=== PATIENT | male | born 1995 | race Caucasian/White ===

== ENCOUNTER 2018-05-19 11:15 | Emergency (ER) | payer OTHER ==
[2018-05-19 12:58] VITALS: BP 120/66
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
== END 2018-05-19 13:19 | disposition home or self-care (01) ==
LOC: UCCORT 11:15
DX: S39.012A Strain of muscle, fascia and tendon of lower back, initial encounter (principal); V43.52XA Car driver injured in collision with other type car in traffic accident, initial encounter; Y93.89 Activity, other specified; Y92.410 Unspecified street and highway as the place of occurrence of the external cause; Z88.6 Allergy status to analgesic agent; F17.210 Nicotine dependence, cigarettes, uncomplicated
CPT/HCPCS: 99211; G0463

== ENCOUNTER 2018-07-14 09:00 | Emergency (ER) | payer OTHER ==
[2018-07-14 09:13] VITALS: BP 132/79
[2018-07-14] MEDS ORDERED: Ibuprofen TAB* 400 MG PO ONE (09:34)
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
--- NOTE | 2018-07-14 10:09 | RAD ---
Indication: Hand injury. 4 views of left hand are reviewed. There is a fracture at the base of the ulnar styloid process. No significant displacement is noted. The rest of the carpal bones and metatarsals are unremarkable. IMPRESSION: Fracture at the base of the ulnar styloid process.
[2018-07-14] MEDS ORDERED: HYDROcodone/ACETAMIN 5-325 MG* 1 TAB PO ONE (10:18)
--- NOTE | 2018-07-14 10:39 | RAD ---
INDICATION: Left forearm injury. TECHNIQUE: 2 views of the left forearm were obtained. FINDINGS: The bones are in normal alignment. On the lateral view there is a faint radiolucent area present in the distal ulna most consistent with a nondisplaced fracture. IMPRESSION: NONDISPLACED FRACTURE OF THE DISTAL ULNA.
[2018-07-14] MEDS ORDERED: Tetan/Diph/Pertus SYR(Tdap)* 0.5 ML SYR(BOOSTRIX) use SYR IM ONE ×2 (10:43→10:44)
== END 2018-07-14 11:07 | disposition home or self-care (01) ==
LOC: UCCORT 09:00
DX: S52.615A Nondisplaced fracture of left ulna styloid process, initial encounter for closed fracture (principal); S60.512A Abrasion of left hand, initial encounter; X50.1XXA Overexertion from prolonged static or awkward postures, initial encounter; Y93.E2 Activity, laundry; Y92.89 Other specified places as the place of occurrence of the external cause; Y99.0 Civilian activity done for income or pay; Z88.6 Allergy status to analgesic agent; F17.200 Nicotine dependence, unspecified, uncomplicated
CPT/HCPCS: 25600; 90471; 90715; 99213; A9270-GY; G0463

== ENCOUNTER 2019-11-14 09:37 | Emergency (ER) | payer OTHER ==
[2019-11-14 10:17] VITALS: BP 119/64
--- NOTE | 2019-11-14 11:35 | UC ---
Abdominal Pain Male HPI - HPI Summary HPI Summary: 24 year old male with no PMH, no prior surgeries presents with right upper quad pain x 24 hours. Gradually getting worse. Worse with deep inspiration / pushing on area. + nausea, no vomiting, no stool changes. nO prior occurrence. Worse with eating, able to drink without difficulty. - History of Current Complaint Chief Complaint: UCAbdominalPain Stated Complaint: ABDOMINAL PAIN Time Seen by Provider: 11/14/19 11:21 Hx Obtained From: Patient Onset/Duration: Sudden Onset, Lasting Days - 1 Timing: Constant Severity Initially: Moderate Severity Currently: Moderate Pain Intensity: 5 Pain Scale Used: 0-10 Numeric Location: Discrete At: RUQ Radiates: No Character: Colicy, Cramping, Sharp Aggravating Factor(s): Food, Deep Breaths Associated Signs And Symptoms: Positive: Negative, Decreased Appetite. Negative : Urinary Symptoms, Vomiting, Diarrhea - Allergies/Home Medications Allergies/Adverse Reactions: Allergies Allergy/AdvReac Type Severity Reaction Status Date / Time naproxen Allergy Intermediate Hives Verified 11/14/19 10:13 Home Medications: Home Medications Ibuprofen TAB* [Motrin TAB* 600 MG] 600 mg PO Q6H PRN 11/14/19 [History Confirmed 11/14/19] hydrOXYzine HCL TAB* [Atarax 25 MG TAB*] 25 mg PO BID PRN 11/14/19 [History Confirmed 11/14/19] PMH/Surg Hx/FS Hx/Imm Hx Previously Healthy: Yes - Surgical History Surgical History: None - Family History Known Family History: Positive: Other - not contributory, no FH RA or other autoimmune disorders, Non-Contributory - Social History Alcohol Use: None Substance Use Type: None Smoking Status (MU): Former Smoker Type: Cigarettes Length of Time of Smoking/Using Tobacco: 1 PPD x 10 Years Have You Smoked in the Last Year: Yes When Did the Patient Quit Smoking/Using Tobacco: ~08/2019 - Immunization History Most Recent Tetanus Shot: 07/14/18 Review of Systems All Other Systems Reviewed And Are Negative: Yes Constitutional: Negative: Fever, Chills, Fatigue Gastrointestinal: Positive: Abdominal Pain, Nausea. Negative: Vomiting, Diarrhea Motor: Positive: Negative Musculoskeletal: Positive: Negative Neurological: Positive: Negative Psychological: Positive: Negative Is Patient Immunocompromised?: No Physical Exam Triage Information Reviewed: Yes Appearance: No Pain Distress, Well-Nourished, Ill-Appearing - minimal Vital Signs: Initial Vital Signs Temp 98.3 F 11/14/19 10:10 Pulse 66 11/14/19 10:10 Resp 16 11/14/19 10:10 BP 119/64 11/14/19 10:10 Pulse Ox 100 11/14/19 10:10 Vital Signs Reviewed: Yes Eyes: Positive: Conjunctiva Clear Abdomen Description: Positive: No Organomegaly, Soft, Guarding - RLQ, RUQ, Other : - TTP over paraumbilical, RLQ, RUQ, + pain over appendix region, + referred pain to RLQ with palpation of LLQ. mild + psoas, neg obtruator.. Negative: CVA Tenderness (R), CVA Tenderness (L), Distended, Hepatomegaly, Splenomegaly Musculoskeletal Exam: Normal Musculoskeletal: Positive: Strength Intact Neurological Exam: Normal Neurological: Positive: Alert, Muscle Tone Normal Psychological Exam: Normal Skin Exam: Normal Skin: Negative: Rashes Abd Pain Male Course/Dx - Course Course Of Treatment: Abdominal pain with possibility of appendicitis - Please go to ER for further work up - SMall sips of water OK, nothing to eat or drink otherwise. - Differential Dx/Clinical Impression Differential Diagnosis/HQI/PQRI: Appendicitis Provider Diagnosis: Abdominal pain Discharge ED - Sign-Out/Discharge Documenting (check all that apply): Patient Departure All imaging exams completed and their final reports reviewed: No Studies - Discharge Plan Condition: Fair Disposition: HOME-RECOMMEND TO ED Patient Education Materials: Acute Abdominal Pain (ED) Referrals: Roberto Zaldivar [Primary Care Provider] - Additional Instructions: - Please go to ER for further work up - SMall sips of water OK, nothing to eat or drink otherwise. - Billing Disposition and Condition Condition: FAIR Disposition: Home-Recommend to ED
== END 2019-11-14 11:40 | disposition home health service (06) ==
LOC: UCCORT 09:37
DX: R10.11 Right upper quadrant pain (principal); R11.0 Nausea; Z88.6 Allergy status to analgesic agent; Z87.891 Personal history of nicotine dependence
CPT/HCPCS: 99212; G0463